=== PATIENT | male | born 1965 | race Caucasian/White ===

== ENCOUNTER 2020-05-27 08:19 | Day surgery (SDC) | payer OTHER ==
[~2020-05-27] VITALS: Ht 180.3 cm; Wt 98.9 kg
[2020-05-27] MEDS ORDERED: MIDAZOLAM 5 MG/5 ML VIAL ONE (11:27)
[2020-05-27] MEDS ORDERED: fentaNYL citrate 0.05 MG/ML VIAL ONE (11:27)
[2020-05-27] MEDS ORDERED: diphenhydrAMINE 50 MG/ML VIAL ONE (11:27)
[2020-05-27] MEDS: MIDAZOLAM 2 MG/2 ML VIAL IVP ONE (11:32)
[2020-05-27] MEDS: fentaNYL citrate 0.05 MG/ML VIAL IVP ONE (11:33)
[2020-05-27] MEDS: LIDOCAINE 2% 100 MG/5 ML UJET TP ONE (11:35)
== END 2020-05-27 12:34 | disposition home or self-care (01) ==
LOC: MDS 08:19 → MMU 08:26 → MDS 12:34
PROVIDERS: ATTEND Internal Medicine Gastroenterology
DX: K52.9 Noninfective gastroenteritis and colitis, unspecified (principal); I25.10 Atherosclerotic heart disease of native coronary artery without angina pectoris; F41.9 Anxiety disorder, unspecified; F32.9 Major depressive disorder, single episode, unspecified; I10 Essential (primary) hypertension; Z95.5 Presence of coronary angioplasty implant and graft; F17.210 Nicotine dependence, cigarettes, uncomplicated; Z79.82 Long term (current) use of aspirin; Z79.899 Other long term (current) drug therapy
CPT/HCPCS: 45380; J2250; J3010; J1200